=== PATIENT | male | born 1970 | race Caucasian/White ===

== ENCOUNTER 2022-01-04 07:52 | Outpatient (CLI) | payer MEDICARE, MEDICAID, SELFPAY ==
--- NOTE | 2022-01-04 08:00 | CRLHL7_ITS ---
For Patients: As a result of the Cures Act, medical imaging exams and procedure reports are released immediately into your electronic medical record. You may view this report before your referring provider. If you have questions, please contact your health care provider. [facility] ??? [facility] MYOCARDIAL PERFUSION SCAN CLINICAL HISTORY: 51-year-old male. Shortness of breath on exertion. Hypertension. COVID-19 infection in August 2021. 5 feet 7 inches, 168 pounds. TECHNIQUE: (Resting SPECT and Stress Gated SPECT with wall motion and ejection fraction) Stress: Pharmacologic ??? walking Lexiscan (0.4 mg) (IV) Dose (Stress/Rest): 32.6 mCi/8.45 mCi Tc-99m Sestamibi (IV) Comparison: None FINDINGS: There is good uptake of activity by the left ventricle. No left ventricular enlargement is noted. There is mild soft tissue attenuation. No other significant fixed or reversible defects are identified. The gated images demonstrate a normal left ventricular ejection fraction of 66 percent. No regional wall motion abnormalities are identified. IMPRESSION: 1. There is no evidence of significant myocardial ischemia or infarction. 2. Normal left ventricular ejection fraction of 66 percent. Giovany Jiménez M.D. Diagnostic/Nuclear Medicine Radiologist [email or web address] Transcribed: 12:50 pm DW/Dictated by: Giovany Jiménez MD @ 01/04/2022 10:57:00 AM (Electronically Signed)
[2022-01-04] MEDS: SODIUM CHLORIDE 0.9 % (FLUSH) 10 ML SYRINGE IVF (09:15)
[2022-01-04] MEDS: REGADENOSON 0.4 MG/5 ML SYRINGE IVP (09:47)
--- NOTE | 2022-01-04 10:00 | PM.ST ---
Stress Test Note Date Time Seen by Provider: :18 Date Seen: 01/04/22 Date of test: 01/04/22 Providers Referring provider: Srinivas Paulino Primary care provider: Srinivas Paulino Stress test physician: Ale Yuen Stress Test Note Stress test ordered: Lexiscan Indication for test: Significant dyspnea on exertion, post COVID pneumonia and pulmonary emboli Stress test medicine: Lexiscan Results discussion: Patient was consented on Lexiscan. He attempted a walking Lexiscan. About 30 seconds into the treadmill and after infusion of the medication, patient felt extremely short of breath and lightheaded, had to be helped off the treadmill in on to the bed in the room. Blood pressure was checked immediately after this and stayed stable. He had no chest pain with it. He had resolution of the dyspnea and shortness of breath. Unfortunately when the treadmill was stopped, EKGs did not print out until recovery phase. I was watching the monitor periodically when I was watching this patient after symptoms, no acute abnormalities arrhythmia was seen on the monitor, no significant ST-T segment changes. He had no EKG changes during this. He had a maximal blood pressure of 139/91. There is no EKG evidence of ischemia. Patient will get his post stress images and discharge to home Impression: Subjectively patient was intolerant of the medication infusion due to severe dyspnea and lightheadedness without blood pressure changes or arrhythmia, EKG portion of this test is negative for ischemia. Follow up suggested: Obtain post-stress images, await formal reading of the nuclear images for a full formal diagnostic.
== END 2022-01-04 07:53 | disposition home or self-care (01) ==
PROVIDERS: PCP Family Medicine; Visit Provider Family Medicine
DX: R06.09 Other forms of dyspnea (principal); I10 Essential (primary) hypertension
CPT/HCPCS: 78452; 93016; 93017; A9500; J2785